=== PATIENT | female | born 1990 | race Caucasian/White ===

== ENCOUNTER 2019-09-24 13:04 | Emergency (ER) | payer OTHER ==
[~2019-09-24] VITALS: Ht 154.9 cm; Wt 59.0 kg
== END 2019-09-24 14:15 | disposition home or self-care (01) ==
LOC: ER 13:04
DX: S61.421A Laceration with foreign body of right hand, initial encounter (principal); W45.8XXA Other foreign body or object entering through skin, initial encounter; Y93.89 Activity, other specified; Y92.098 Other place in other non-institutional residence as the place of occurrence of the external cause; Y99.8 Other external cause status

== ENCOUNTER → 2019-09-30 | Emergency (ER) | payer OTHER ==
[~2019-09-30] VITALS: Ht 154.9 cm; Wt 59.0 kg
== END | disposition left against medical advice (07) ==
LOC: ER 20:21
DX: Z53.20 Procedure and treatment not carried out because of patient's decision for unspecified reasons (principal)